=== PATIENT | female | born 1960 ===

== ENCOUNTER 2020-04-16 14:29 | Emergency (ER) | payer BC ==
[2020-04-16] MEDS ORDERED: Proparacaine 0.5% Ophth Soln 15 ML Bottle EYEBOTH STA (14:51)
--- NOTE | 2020-04-16 15:13 | EDM.PDOC ---
ED HPI GENERAL MEDICAL PROBLEM - General Chief Complaint: Eye Problems Stated Complaint: LEFT EYE REDNESS Time Seen by Provider: 04/16/20 14:50 Source of Information: Reports: Patient, RN Notes Reviewed History Limitations: Reports: No Limitations - History of Present Illness INITIAL COMMENTS - FREE TEXT/NARRATIVE: 59-year-old female presents emergency department today with concern about bleeding in her left eye, she denies any particular trauma has not had any coughing fits recently had some dental work done a couple of weeks ago she has no problem with her vision - Related Data Allergies Allergy/AdvReac Type Severity Reaction Status Date / Time No Known Allergies Allergy Verified 04/16/20 14:49 Home Meds: Home Meds NK [No Known Home Meds] 04/16/20 [History] Past Medical History - Past Health History Medical/Surgical History: Denies Medical/Surgical History Social & Family History - Tobacco Use Smoking Status *Q: Never Smoker - Recreational Drug Use Recreational Drug Use: No ED ROS GENERAL - Review of Systems Review Of Systems: See Below Constitutional: Reports: No Symptoms HEENT: Denies: Vision Change ED EXAM GENERAL W FULL EYE - Physical Exam Exam: See Below Exam Limited By: No Limitations General Appearance: Alert, WD/WN, No Apparent Distress Eye Exam: Right Eye: Normal Inspection, Left Eye: Bleeding, Bilateral Eye: EOMI, PERRL Eyelids: Bilateral: Normal Appearance Conjunctiva & Sclera: Right: Normal Appearance, Left: Subconjuctival Hemorrhage Cornea Exam: Left: Normal Appearance Extraocular Movements: Bilateral: Intact Pupils: Normal Accommodation Pupillary Size: Bilateral: 3 mm Pupillary Reaction: Bilateral: Brisk Anterior Chamber: Bilateral: Normal Appearance Course - Vital Signs Last Recorded V/S: Last Vital Signs Temp 96.8 F L 04/16/20 14:42 Pulse 87 04/16/20 14:42 Resp 14 04/16/20 14:42 BP 149/85 H 04/16/20 14:42 Pulse Ox 99 04/16/20 14:42 - Orders/Labs/Meds Meds: Medications Discontinued Medications Generic Name Dose Route Start Last Admin Trade Name Freq PRN Reason Stop Dose Admin Proparacaine HCl 1 ml 04/16/20 14:51 Proparacaine 0.5% Ophth Soln EYEBOTH 04/16/20 14:52 NOW STA Departure - Departure Time of Disposition: 15:12 Disposition: Home, Self-Care 01 Condition: Fair Clinical Impression: Subconjunctival hemorrhage of left eye - Discharge Information Instructions: Subconjunctival Hemorrhage Referrals: PCP,None [Primary Care Provider] - Additional Instructions: Follow-up with eye care provider in 3 to 5 days if no improvement call return to the emergency department worsening of symptoms Sepsis Event Note (ED) - Evaluation Sepsis Screening Result: No Definite Risk - Focused Exam Vital Signs: Vital Signs Temp Pulse Resp BP Pulse Ox 04/16/20 14:42 96.8 F L 87 14 149/85 H 99 - Assessment/Plan Plan: Assessment Acuity = acute Site and laterality = subconjunctival hemorrhage Etiology = unknown Manifestations = none Location of injury = Home Lab values = none Plan Handout provided watchful waiting for now, follow-up with eye care provider in 3 to 5 days if no improvement This note was dictated using [employer] voice recognition software please call with any questions on syntax or grammar.
== END 2020-04-16 15:24 | disposition home or self-care (01) ==
LOC: JP.ED 14:29
DX: H11.32 Conjunctival hemorrhage, left eye (principal)
CPT/HCPCS: 99282; A9270-GY